=== PATIENT | female | born 1970 | race Caucasian/White ===

== ENCOUNTER 2021-03-10 16:35 | Emergency (ER) | payer BC ==
[2021-03-10 16:46] VITALS: BP 120/85; PULSE 92; TEMP 98.5; BMI 28.1
== END 2021-03-10 19:41 | disposition home or self-care (01) ==
LOC: FER 16:35
DX: R60.0 Localized edema (principal); M79.672 Pain in left foot
CPT/HCPCS: 73610-TC-LT-FY; 73630-TC-LT; 93971-TC; 99284-25

== ENCOUNTER 2023-03-26 11:00 | Emergency (ER) | payer BC ==
[2023-03-26 11:15] VITALS: BP 113/85; PULSE 90; RESP 16; TEMP 98.2; BMI 28.1
[2023-03-26] MEDS ORDERED: SODIUM CHLORIDE 0.9% 500 ML INFUS.BAG IV ONE (11:18)
[2023-03-26 12:03] LABS: HEMATOCRIT 38.6 % (32.4-45.2); HEMOGLOBIN 12.6 G/dL (10.7-15.3); MCHC 32.7 g/dl (32.0-36.0); MEAN CELL VOLUME 97.7 fl (80-96); MEAN PLT VOLUME 6.9 fl (7.5-11.1); PLATELET COUNT 491.1 10^3/uL (134-434); RBC 3.95 10^6/uL (3.60-5.2); RDW 13.9 % (11.6-15.6)
[2023-03-26 12:07] LABS: ALBUMIN 4.1 g/dl (3.4-5.0); BLOOD UREA NITROGEN 6.9 mg/dl (7-18); CALCIUM 9.5 mg/dl (8.5-10.1); CREATININE 0.7 mg/dl (0.6-1.3); POTASSIUM 3.9 mmol/L (3.5-5.1); SGOT/AST 19.7 U/L (15-37); SGPT/ALT 17.4 U/L (7-52); TOT PROT 6.6 g/dl (6.4-8.2)
[2023-03-26] MEDS ORDERED: BISACODYL 5 MG TABLET.DR (FP) PO ONE (12:32)
[2023-03-26 13:15] LABS: BILIRUBIN,TOTAL 0.2 mg/dL (0.2-1)
== END 2023-03-26 14:28 | disposition home or self-care (01) ==
LOC: FER 11:00
DX: M54.50 Low back pain, unspecified (principal); R34 Anuria and oliguria; R33.9 Retention of urine, unspecified; K59.00 Constipation, unspecified
CPT/HCPCS: 36415; 74176-TC; 80053; 81003; 85027; 87086; 99284-25

== ENCOUNTER 2023-08-15 04:23 | Day surgery (SDC) | payer BC ==
[2023-08-09 14:17] VITALS: BMI 30.4
[2023-08-15 08:34] VITALS: TEMP 99.5
[2023-08-15 09:05] VITALS: BP 108/80; PULSE 68; RESP 15
== END 2023-08-15 09:45 | disposition home or self-care (01) ==
LOC: JASU-ENDO 04:23
PROVIDERS: ATTEND Internal Medicine Gastroenterology
PROC: 0DBM8ZX Excision of Descending Colon, Via Natural or Artificial Opening Endoscopic, Diagnostic (ICD-10-PCS; principal; 2023-08-15 08:00)
DX: Z12.11 Encounter for screening for malignant neoplasm of colon (principal); D12.2 Benign neoplasm of ascending colon; Z86.010 Personal history of colon polyps; Z83.719 Family history of colon polyps, unspecified

== ENCOUNTER 2023-09-16 22:46 | Emergency (ER) | payer BC ==
[2023-09-16 22:55] VITALS: TEMP 98; BMI 28.8
[2023-09-16] MEDS ORDERED: ALBUTEROL SO4 2.5/IPRATROPIUM 0.5 INH SOL 3 ML VIAL.NEB. NEB ONE (23:26)
[2023-09-16] MEDS: ALBUTEROL SO4 2.5/IPRATROPIUM 0.5 INH SOL 3 ML VIAL.NEB. NEB ONE (23:41)
[2023-09-16] MEDS ORDERED: methylPREDNISolone NA SUCC 125 MG/2 ML VIAL ONE (23:44)
[2023-09-16] MEDS ORDERED: MAGNESIUM SULFATE IN WATER 2 GM/50 ML IVPB IVPB ONE (23:44)
[2023-09-16] MEDS: MAGNESIUM SULF 50% (8.12 MEQ/2 ML-1 GM VIAL) IVPB ONE (23:52)
[2023-09-16] MEDS: methylPREDNISolone NA SUCC 125 MG/2 ML VIAL IVPB ONE (23:52)
[2023-09-17 00:12] VITALS: BP 117/75; PULSE 99; RESP 18
== END 2023-09-17 01:42 | disposition home or self-care (01) ==
LOC: JER 22:46
PROC: 3E033GC Introduction of Other Therapeutic Substance into Peripheral Vein, Percutaneous Approach (ICD-10-PCS; principal; 2023-09-16)
PROC: 3E033GC Introduction of Other Therapeutic Substance into Peripheral Vein, Percutaneous Approach (ICD-10-PCS; 2023-09-16)
PROC: 3E0F7GC Introduction of Other Therapeutic Substance into Respiratory Tract, Via Natural or Artificial Opening (ICD-10-PCS; 2023-09-16)
DX: J45.901 Unspecified asthma with (acute) exacerbation (principal); R06.02 Shortness of breath; R00.0 Tachycardia, unspecified
CPT/HCPCS: 93005; 93010; 99284-25

== ENCOUNTER 2024-02-13 15:36 | Emergency (ER) | payer BC ==
[2024-02-13 15:50] VITALS: BP 111/78; PULSE 100; RESP 18; TEMP 98.7; BMI 28.1
== END 2024-02-13 16:48 | disposition home or self-care (01) ==
LOC: FER 15:36
DX: S69.92XA Unspecified injury of left wrist, hand and finger(s), initial encounter (principal); W10.9XXA Fall (on) (from) unspecified stairs and steps, initial encounter
CPT/HCPCS: 73090-TC-LT-FY; 73110-TC-LT-FY; 73130-TC-LT-FY; 99283-25

== ENCOUNTER 2024-04-14 10:09 | Emergency (ER) | payer BC ==
[2024-04-14 10:19] VITALS: BP 118/89; PULSE 85; RESP 16; TEMP 97.5; BMI 27.6
== END 2024-04-14 13:30 | disposition home or self-care (01) ==
LOC: JERFT 10:09
DX: S83.92XA Sprain of unspecified site of left knee, initial encounter (principal); W18.40XA Slipping, tripping and stumbling without falling, unspecified, initial encounter; X50.1XXA Overexertion from prolonged static or awkward postures, initial encounter
CPT/HCPCS: 73560-TC-LT-FY; 99283-25